=== PATIENT | male | born 1945 | race Caucasian/White ===

== ENCOUNTER → 2024-01-30 13:41 | Outpatient (REF) | payer MEDICARE, SELFPAY | LOC: EMG 13:41 | PROVIDERS: ATTENDING PHYSICIAN Orthopaedic Surgery; FAMILY PHYSICIAN Internal Medicine | DX: R20.0 Anesthesia of skin (principal) | CPT/HCPCS: 95886; 95909 ==

== ENCOUNTER → 2024-09-09 16:22 | Outpatient (REF) | payer MEDICARE, SELFPAY | LOC: RAD 16:22 | PROVIDERS: ATTENDING PHYSICIAN Internal Medicine | DX: M54.31 Sciatica, right side (principal) | CPT/HCPCS: 72110 ==

== ENCOUNTER → 2024-10-17 08:38 | Outpatient (REF) | payer MEDICARE, SELFPAY | LOC: PAVMRI 08:38 | PROVIDERS: ATTENDING PHYSICIAN Pain Medicine Interventional Pain Medicine; FAMILY PHYSICIAN Internal Medicine | DX: M54.16 Radiculopathy, lumbar region (principal) | CPT/HCPCS: 72148 ==